=== PATIENT | male | born 2000 | race Caucasian/White ===

== ENCOUNTER 2021-08-20 00:56 | Emergency (ER) | payer OTHER ==
--- NOTE | 2021-08-20 00:56 | ED Physician Documentation ---
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 Patient has been distraught over recent of his mother as well as of a friend by suicide. Tonight he drank a half-bottle of OTC cough syrup with intent of self-harm. He tells me he feels actively suicidal and has been heavily contemplating suicide recently. He is requesting inpatient treatment. he deneis h/o depression, deneis h/o previous suicide attempts. Review of Systems Cardiac: reports: Reviewed and negative Respiratory: reports: Reviewed and negative GI: reports: Reviewed and negative Neurologic: reports: Reviewed and negative Psychiatric: reports: Depressed, Suicidal. denies: Hallucinations, Delusions PD PAST MEDICAL HISTORY - Past Medical History Past Medical History: No - Present Medications Home Medications: Ambulatory Orders Medication Instructions Recorded Confirmed No Known Home Medications 08/20/21 08/20/21 - Allergies Allergies/Adverse Reactions: Allergies Allergy/AdvReac Type Severity Reaction Status Date / Time No Known Drug Allergies Allergy Verified 08/20/21 01:00 PD ED PE NORMAL - Vitals Vital signs reviewed: Yes - General General: Alert and oriented X 3, No acute distress, Well developed/nourished - HEENT HEENT: PERRL, EOMI, Moist mucous membranes - Neck Neck: Supple, no meningeal sign - Cardiac Cardiac: RRR, No murmur - Respiratory Respiratory: No respiratory distress, Clear bilaterally - Abdomen Abdomen: Soft, Non tender - Derm Derm: Normal color, Warm and dry - Neuro Neuro: Alert and oriented X 3 Eye Opening: Spontaneous Motor: Obeys Commands Verbal: Oriented GCS Score: 15 - Psych Psych: Normal mood, Normal affect Results - Vitals Vitals: Vital Signs - 24 hr 08/20/21 08/20/21 08/20/21 01:00 01:33 03:53 Temperature 37 C Heart Rate 103 H 86 77 Respiratory 15 15 16 Rate Blood Pressure 162/104 H 129/85 H 122/70 O2 Saturation 95 97 96 08/20/21 05:31 Temperature Heart Rate 69 Respiratory 16 Rate Blood Pressure 120/67 O2 Saturation 95 Oxygen O2 Source Room air - Labs Labs: Laboratory Tests 08/20/21 08/20/21 08/20/21 01:17 01:21 01:21 WBC 6.6 RBC 5.47 Hgb 16.1 Hct 47.4 MCV 86.7 MCH 29.4 MCHC 34.0 RDW 12.2 Plt Count 173 MPV 10.0 Neut # (Auto) 3.9 Lymph # (Auto) 2.0 [place] # (Auto) 0.5 Eos # (Auto) 0.1 Baso # (Auto) 0.0 Absolute Nucleated RBC 0.00 Nucleated RBC % 0.0 Sodium 138 Potassium 3.5 Chloride 101 Carbon Dioxide 27 Anion Gap 10.0 BUN 14 Creatinine 1.1 Estimated GFR (MDRD) 86 L Glucose 115 H Calcium 9.1 Total Bilirubin 1.0 AST 20 ALT 18 Alkaline Phosphatase 48 Total Protein 7.8 Albumin 4.5 Globulin 3.3 Albumin/Globulin Ratio 1.4 Lipase 32 TSH Urine Color Urine Clarity Urine pH Ur Specific [place] Urine Protein Urine Glucose (UA) Urine Ketones Urine Occult Blood Urine Nitrite Urine Bilirubin Urine Urobilinogen Ur Leukocyte Esterase Ur Microscopic Review Urine Culture Comments Nasal Adenovirus (PCR) NOT DETECTED Nasal B. parapertussis DNA (PCR) NOT DETECTED Nasal Coronavir 229E PCR NOT DETECTED Nasal Coronavir HKU1 PCR NOT DETECTED Nasal Coronavir NL63 PCR NOT DETECTED Nasal Coronavir OC43 PCR NOT DETECTED Nasal Enterovir/Rhinovir PCR NOT DETECTED Nasal Influenza B PCR NOT DETECTED Nasal Influenza A PCR NOT DETECTED Nasal Parainfluen 1 PCR NOT DETECTED Nasal Parainfluen 2 PCR NOT DETECTED Nasal Parainfluen 3 PCR NOT DETECTED Nasal Parainfluen 4 PCR NOT DETECTED Nasal RSV (PCR) NOT DETECTED Nasal B.pertussis DNA PCR NOT DETECTED Nasal C.pneumoniae (PCR) NOT DETECTED [place] Human Metapneumo PCR NOT DETECTED Nasal M.pneumoniae (PCR) NOT DETECTED Nasal SARS-CoV-2 (PCR) NOT DETECTED Salicylates < 6.0 Urine Opiates Screen Ur Oxycodone Screen Urine Methadone Screen Ur Propoxyphene Screen Acetaminophen 21 Ur Barbiturates Screen Ur Tricyclics Screen Ur Phencyclidine Scrn Ur Amphetamine Screen U Methamphetamines Scrn U Benzodiazepines Scrn Urine Cocaine Screen U Cannabinoids Screen Ethyl Alcohol < 5.0 08/20/21 08/20/2108/20/22 01:21 01:25 03:57 WBC RBC Hgb Hct MCV MCH MCHC RDW Plt Count MPV Neut # (Auto) Lymph # (Auto) [place] # (Auto) Eos # (Auto) Baso # (Auto) Absolute Nucleated RBC Nucleated RBC % Sodium Potassium Chloride Carbon Dioxide Anion Gap BUN Creatinine Estimated GFR (MDRD) Glucose Calcium Total Bilirubin AST ALT Alkaline Phosphatase Total Protein Albumin Globulin Albumin/Globulin Ratio Lipase TSH 3.45 Urine Color YELLOW Urine Clarity CLEAR Urine pH 6.0 Ur Specific [place] 1.025 Urine Protein NEGATIVE Urine Glucose (UA) NEGATIVE Urine Ketones NEGATIVE Urine Occult Blood NEGATIVE Urine Nitrite NEGATIVE Urine Bilirubin NEGATIVE Urine Urobilinogen 0.2 (NORMAL) Ur Leukocyte Esterase NEGATIVE Ur Microscopic Review NOT INDICATED Urine Culture Comments NOT INDICATED Nasal Adenovirus (PCR) Nasal B. parapertussis DNA (PCR) Nasal Coronavir 229E PCR Nasal Coronavir HKU1 PCR Nasal Coronavir NL63 PCR Nasal Coronavir OC43 PCR Nasal Enterovir/Rhinovir PCR Nasal Influenza B PCR Nasal Influenza A PCR Nasal Parainfluen 1 PCR Nasal Parainfluen 2 PCR Nasal Parainfluen 3 PCR Nasal Parainfluen 4 PCR Nasal RSV (PCR) Nasal B.pertussis DNA PCR Nasal C.pneumoniae (PCR) [place] Human Metapneumo PCR Nasal M.pneumoniae (PCR) Nasal SARS-CoV-2 (PCR) Salicylates Urine Opiates Screen NEGATIVE Ur Oxycodone Screen NEGATIVE Urine Methadone Screen NEGATIVE Ur Propoxyphene Screen NEGATIVE Acetaminophen 12 Ur Barbiturates Screen NEGATIVE Ur Tricyclics Screen NEGATIVE Ur Phencyclidine Scrn NEGATIVE Ur Amphetamine Screen NEGATIVE U Methamphetamines Scrn NEGATIVE U Benzodiazepines Scrn NEGATIVE Urine Cocaine Screen NEGATIVE U Cannabinoids Screen NEGATIVE Ethyl Alcohol PD MEDICAL DECISION MAKING - ED course Complexity details: reviewed results, re-evaluated patient, considered differential, d/w patient ED course: patient intentionally overdosed on [id number] cough medication tonight and endorses active suicidal thoughts. no concerning findings on testing , including acetaminophen level (performed shortly after arrival, with repeat level drawn at what would be four hours from when he drank the cough syrup; the initial level was 21, which decreased to 12 on the second draw). He is medically cleared and requests inpatient treatment. He is active duty [facility]; [facility] contacted but they do not have beds available. NAKUL will be consulted in the AM to assist in finding appropriate placement. Care of patient turned over to Dr. Pace at end of my shift pending SW evaluation and disposition Departure - Departure Disposition: 65 Psych Hosp/Unit DC/Xfer Clinical Impression: Suicidal ideation Depression Qualifiers: Depression Type: major depressive disorder Major depression recurrence: unspecified whether recurrent Active/Remission status: currently active Major depression episode severity: moderate Qualified Code(s): F32.1 - Major depressive disorder, single episode, moderate Discharge Date/Time: 08/20/21 15:08
[2021-08-20 01:25] LABS: BASOPHILS % (AUTO) 0.5 %; EOSINOPHILS # (AUTO) 0.1 10^3/uL (0.0-0.7); HCT - HEMATOCRIT 47.4 % (42.0-52.0); HGB - HEMOGLOBIN 16.1 g/dL (14.0-18.0); LYMPHOCYTES % (AUTO) 29.7 %; MEAN CORPUSCULAR HEMOGLOBIN 29.4 pg (27.0-31.0); MEAN CORPUSCULAR VOLUME 86.7 fL (80.0-94.0); MONOCYTES # (AUTO) 0.5 10^3/uL (0.0-1.0); MONOCYTES % (AUTO) 8.2 %; NEUTROPHILS # (AUTO) 3.9 10^3/uL (1.5-6.6); NEUTROPHILS % (AUTO) 59.3 %; PLT - PLATELET COUNT 173 10^3/uL (130-450); RED BLOOD COUNT 5.47 10^6/uL (4.70-6.10); RED CELL DISTRIBUTION WIDTH 12.2 % (12.0-15.0); WHITE BLOOD COUNT 6.6 x10^3/uL (4.8-10.8)
[2021-08-20 01:30] LABS: MUDS CUTOFF CONCENTRATIONS CUTOFF CONC BELOW:
[2021-08-20 01:38] LABS: BILIRUBIN,URINE NEGATIVE (NEGATIVE); GLUCOSE, URINE (UA) NEGATIVE (NEGATIVE); KETONES,URINE (UA) NEGATIVE (NEGATIVE); LEUKOCYTE ESTERASE, URINE NEGATIVE (NEGATIVE); NITRITE,URINE NEGATIVE (NEGATIVE); OCCULT BLOOD,URINE NEGATIVE (NEGATIVE); PROTEIN,URINE NEGATIVE (NEGATIVE); UROBILINOGEN,URINE 0.2 (NORMAL) E.U./dL (NORMAL)
[2021-08-20 01:39] LABS: CLARITY,URINE CLEAR (CLEAR)
[2021-08-20 01:44] LABS: ACETAMINOPHEN 21 ug/mL (10-30); ALBUMIN 4.5 g/dL (3.2-5.5); ALBUMIN/GLOBULIN RATIO 1.4 (1.0-2.2); ALKALINE PHOSPHATASE 48 IU/L (42-121); ALT ALANINE AMINOTRANSFERASE 18 IU/L (10-60); AST ASPARTATE AMINOTRANSFERASE 20 IU/L (10-42); BUN - BLOOD UREA NITROGEN 14 mg/dL (6-20); CALCIUM 9.1 mg/dL (8.5-10.3); CARBON DIOXIDE - CO2 27 mmol/L (21-32); CHLORIDE 101 mmol/L (101-111); CREATININE 1.1 mg/dL (0.6-1.2); ETOH - ETHANOL < 5.0 mg/dL; GFR - MDRD 86 (>89); GLUCOSE 115 mg/dL (70-100); LIPASE 32 U/L (22-51); POTASSIUM 3.5 mmol/L (3.5-5.0); SALICYLATE < 6.0 mg/dL; SODIUM 138 mmol/L (135-145); TOTAL PROTEIN 7.8 g/dL (6.7-8.2)
[2021-08-20 01:47] LABS: AMPHETAMINE SCREEN,URINE NEGATIVE (NEGATIVE); BARBITURATE SCREEN,UR NEGATIVE (NEGATIVE); BENZODIAZEPINES SCREEN, URINE NEGATIVE (NEGATIVE); COCAINE SCREEN URINE NEGATIVE (NEGATIVE); METHADONE SCREEN, URINE NEGATIVE (NEGATIVE); METHAMPHETAMINES SCREEN, URINE NEGATIVE (NEGATIVE); OPIATE SCREEN, URINE NEGATIVE (NEGATIVE); OXYCODONE SCREEN, URINE NEGATIVE (NEGATIVE); PROPOXYPHENE SCREEN, URINE NEGATIVE (NEGATIVE); THC CANNABINOID SCREEN, URINE NEGATIVE (NEGATIVE); TRICYCLIC ANTIDEPRESSANT,URINE NEGATIVE (NEGATIVE)
[2021-08-20 02:23] LABS: B. PARAPERTUSSIS- RESP PCR PAN NOT DETECTED; B. PERTUSSIS- RESP PCR PANEL NOT DETECTED; C. PNEUMONIAE- RESP PCR PANEL NOT DETECTED; CORONAVIRUS 229E-RESP PCR NOT DETECTED; CORONAVIRUS HKU1-RESP PCR NOT DETECTED; CORONAVIRUS NL63-RESP PCR NOT DETECTED; CORONAVIRUS OC43-RESP PCR NOT DETECTED; HUMAN METAPNEUMOVIRUS NOT DETECTED; INFLUENZA A- RESP PCR PANEL NOT DETECTED; INFLUENZA B - RESP PCR PANEL NOT DETECTED; M. PNEUMONIAE- RESP PCR PANEL NOT DETECTED; PARAINFLUENZA VIRUS 1 NOT DETECTED; PARAINFLUENZA VIRUS 2 NOT DETECTED; PARAINFLUENZA VIRUS 3 NOT DETECTED; PARAINFLUENZA VIRUS 4 NOT DETECTED; RHINOVIRUS/ENTEROVIRUS NOT DETECTED; RSV- RESP PCR PANEL NOT DETECTED; SARS-CoV-2 -RESP PCR PANEL NOT DETECTED
[2021-08-20 05:31] VITALS: BP 120/67
--- NOTE | 2021-08-20 13:23 | ED Physician Documentation ---
ED Addendum - Addendum Addendum: 08/20/21 13:23 20-year-old male with depression and suicidal ideation is voluntary and he is accepted at [facility]. [facility] was full unable to accept him.
== END 2021-08-20 15:08 ==
LOC: ED 00:56
DX: F32.1 Major depressive disorder, single episode, moderate (principal); T48.4X2A Poisoning by expectorants, intentional self-harm, initial encounter; R45.851 Suicidal ideations; Z20.822 Contact with and (suspected) exposure to COVID-19
CPT/HCPCS: 0202U; 36415; 80053; 80306; 80307; 80320; 80329; 81003; 83690; 84443; 85025; 99283; 99285; 81001; 87086

== ENCOUNTER 2021-09-02 11:50 | Outpatient (CLI) | payer OTHER | END 2021-09-02 11:51 | disposition critical access hospital (66) | LOC: EMS 11:50 | DX: T50.992A Poisoning by other drugs, medicaments and biological substances, intentional self-harm, initial encounter (principal) | CPT/HCPCS: A0425; A0429 ==

== ENCOUNTER 2021-09-02 12:18 | Emergency (ER) | payer OTHER ==
--- NOTE | 2021-09-02 12:28 | ED Physician Documentation ---
PD HPI OVERDOSE - Stated complaint Stated Complaint: OD - History obtained from History obtained from: Patient - History of Present Illness Timing - onset: How many hours ago (1 /2), Today Subtance(s) ingested: Single (hydroxyzine 25 mg tablets, about 12-15 total.) Associated symptoms: Altered mental status (he started to feel drowsy and lightheaded and told his friend what he did, who called EMS.) Contributing factors: Depresssed, Suicidal (He states he does have history of depression and prior suicide ideation. His boyfriend broke up with him today which got him reactively more depressed and he took a overdose of the hydroxyzine in response. He then told his friend who called EMS for help.) Similar symptoms before: Diagnosis (depression and suicidal ideation.) Recently seen: Not recently seen Review of Systems Constitutional: denies: Fever, Chills Nose: denies: Rhinorrhea / runny nose, Congestion Throat: denies: Sore throat Respiratory: denies: Cough GI: reports: Nausea. denies: Abdominal Pain, Vomiting, Diarrhea Skin: denies: Abrasion (s), Laceration (s) Neurologic: reports: Altered mental status (feeling lightheaded since ingestion.) PD PAST MEDICAL HISTORY - Past Medical History Cardiovascular: None Respiratory: None Endocrine/Autoimmune: None Psych: Depression, Anxiety - Past Surgical History Past Surgical History: Yes HEENT: Tonsil/Adenoidectomy - Present Medications Home Medications: Ambulatory Orders Medication Instructions Recorded Confirmed Atomoxetine HCl [Strattera] 40 mg PO DAILY 09/02/21 09/02/21 OLANZapine ODT [Zyprexa Odt] 5 mg TL Q6HR PRN 09/02/21 09/02/21 hydrOXYzine pamoate [Hydroxyzine 75 mg PO Q4HR PRN 09/02/21 09/02/21 Pamoate] traZODone [Desyrel] 50 mg PO HS PRN 09/02/21 09/02/21 - Allergies Allergies/Adverse Reactions: Allergies Allergy/AdvReac Type Severity Reaction Status Date / Time clonidine Allergy Anaphylaxis Verified 09/02/21 12:26 - Social History Does the pt smoke?: No Smoking Status: Never smoker Does the pt drink ETOH?: No Does the pt have substance abuse?: No - Immunizations Immunizations are current?: Yes PD ED PE NORMAL - Vitals Vital signs reviewed: Yes - General General: Alert and oriented X 3, Well developed/nourished - HEENT HEENT: PERRL, EOMI (no nystagmus), Moist mucous membranes, Pharynx benign - Neck Neck: Supple, no meningeal sign, No adenopathy - Cardiac Cardiac: No murmur. No: RRR (regular but tachycardic) - Respiratory Respiratory: Clear bilaterally - Abdomen Abdomen: Soft, Non tender - Derm Derm: Normal color, Warm and dry, No rash - Extremities Extremities: Normal ROM s pain - Neuro Neuro: Alert and oriented X 3, No motor deficit, Normal speech - Psych Psych: No: Normal affect (sad and moderate anxious) Results - Vitals Vitals: Vital Signs - 24 hr 09/02/21 09/02/21 09/02/21 12:23 12:50 13:29 Temperature 37.0 C Heart Rate 130 H 100 116 H Respiratory 16 15 20 Rate Blood Pressure 160/98 H 150/93 H 142/95 H O2 Saturation 100 98 98 09/02/21 09/02/21 09/02/21 13:30 14:35 15:00 Temperature Heart Rate 103 H 91 108 H Respiratory 14 17 19 Rate Blood Pressure 137/89 H 113/83 H 130/97 H O2 Saturation 98 97 98 09/02/21 09/02/21 09/02/21 15:30 16:00 16:39 Temperature 36.8 C Heart Rate 106 H 99 99 Respiratory 18 17 17 Rate Blood Pressure 137/89 H 129/87 H 125/76 O2 Saturation 99 98 97 09/02/21 09/02/21 09/02/21 17:31 18:07 18:35 Temperature 37.4 C Heart Rate 104 H 97 88 Respiratory 24 17 22 Rate Blood Pressure 143/92 H 139/88 H 127/80 O2 Saturation 96 97 97 Oxygen O2 Source Room air - EKG (time done) 12:35 Rate: Rate (enter#) (113) Rhythm: Sinus tachycardia [place]: Normal Intervals: Normal DC QRS: Normal Ischemia: Normal ST segments. No: ST elevation c/w ischemia, ST depression - Labs Labs: Laboratory Tests 09/02/21 09/02/21 09/02/21 12:43 12:43 12:43 WBC 6.5 RBC 5.76 Hgb 16.8 Hct 49.9 MCV 86.6 MCH 29.2 MCHC 33.7 RDW 12.3 Plt Count 197 MPV 10.1 Neut # (Auto) 4.1 Lymph # (Auto) 1.6 [place] # (Auto) 0.6 Eos # (Auto) 0.2 Baso # (Auto) 0.0 Absolute Nucleated RBC 0.00 Nucleated RBC % 0.0 Sodium 139 Potassium 3.8 Chloride 103 Carbon Dioxide 26 Anion Gap 10.0 BUN 10 Creatinine 1.2 Estimated GFR (MDRD) 78 L Glucose 105 H Calcium 9.4 Total Bilirubin 2.4 H AST 19 ALT 16 Alkaline Phosphatase 50 Total Protein 7.8 Albumin 4.6 Globulin 3.2 Albumin/Globulin Ratio 1.4 Lipase 25 TSH 2.56 Urine Color Urine Clarity Urine pH Ur Specific [place] Urine Protein Urine Glucose (UA) Urine Ketones Urine Occult Blood Urine Nitrite Urine Bilirubin Urine Urobilinogen Ur Leukocyte Esterase Ur Microscopic Review Urine Culture Comments Salicylates < 6.0 Urine Opiates Screen Ur Oxycodone Screen Urine Methadone Screen Ur Propoxyphene Screen Acetaminophen < 10 L Ur Barbiturates Screen Ur Tricyclics Screen Ur Phencyclidine Scrn Ur Amphetamine Screen U Methamphetamines Scrn U Benzodiazepines Scrn Urine Cocaine Screen U Cannabinoids Screen Ethyl Alcohol < 5.0 09/02/21 13:00 WBC RBC Hgb Hct MCV MCH MCHC RDW Plt Count MPV Neut # (Auto) Lymph # (Auto) [place] # (Auto) Eos # (Auto) Baso # (Auto) Absolute Nucleated RBC Nucleated RBC % Sodium Potassium Chloride Carbon Dioxide Anion Gap BUN Creatinine Estimated GFR (MDRD) Glucose Calcium Total Bilirubin AST ALT Alkaline Phosphatase Total Protein Albumin Globulin Albumin/Globulin Ratio Lipase TSH Urine Color YELLOW Urine Clarity CLEAR Urine pH 6.0 Ur Specific [place] 1.025 Urine Protein NEGATIVE Urine Glucose (UA) NEGATIVE Urine Ketones NEGATIVE Urine Occult Blood NEGATIVE Urine Nitrite NEGATIVE Urine Bilirubin NEGATIVE Urine Urobilinogen 0.2 (NORMAL) Ur Leukocyte Esterase NEGATIVE Ur Microscopic Review NOT INDICATED Urine Culture Comments NOT INDICATED Salicylates Urine Opiates Screen NEGATIVE Ur Oxycodone Screen NEGATIVE Urine Methadone Screen NEGATIVE Ur Propoxyphene Screen NEGATIVE Acetaminophen Ur Barbiturates Screen NEGATIVE Ur Tricyclics Screen NEGATIVE Ur Phencyclidine Scrn NEGATIVE Ur Amphetamine Screen NEGATIVE U Methamphetamines Scrn NEGATIVE U Benzodiazepines Scrn NEGATIVE Urine Cocaine Screen NEGATIVE U Cannabinoids Screen NEGATIVE Ethyl Alcohol PD MEDICAL DECISION MAKING - ED course Complexity details: reviewed results, re-evaluated patient (The patient was initially tachycardic in the little bit lightheaded. This improved over 1 to 2 hours and he subsequently is feeling normal. Heart rate is good. Blood pressure is also good. He has not developed any significant consequence from the overdose. He is able to be assessed psychiatric.), considered differential, d/w patient, d/w procurement consultant (Telepsychiatry provider talked with the patient and was concerned about his still ongoing stress about the current situation and recommends voluntary inpatient. The patient is agreeable.) Departure - Departure Disposition: 65 Psych Hosp/Unit DC/Xfer Clinical Impression: Suicidal risk, Reactive depression (situational) Intentional overdose Qualifiers: Encounter type: initial encounter Qualified Code(s): T50.902A - Poisoning by unspecified drugs, medicaments and biological substances, intentional self-harm, initial encounter Depression Qualifiers: Depression Type: unspecified Qualified Code(s): F32.A - Depression, unspecified Condition: Stable Record reviewed to determine appropriate education?: Yes
[2021-09-02] MEDS ORDERED: SODIUM CHLORIDE 0.9% 1,000 ML IV STA (12:30)
[2021-09-02] MEDS ORDERED: KETOROLAC 15 MG/ML VIAL IVP STA (12:30)
[2021-09-02] MEDS ORDERED: FAMOTIDINE 20 MG/2 ML VIAL IVP STA (12:30)
[2021-09-02] MEDS ORDERED: CHARCOAL ACTIVATED 25 GM/120 ML BOTTLE PO STA (12:30)
[2021-09-02 12:49] LABS: BASOPHILS % (AUTO) 0.3 %; EOSINOPHILS # (AUTO) 0.2 10^3/uL (0.0-0.7); EOSINOPHILS % (AUTO) 2.3 %; HCT - HEMATOCRIT 49.9 % (42.0-52.0); HGB - HEMOGLOBIN 16.8 g/dL (14.0-18.0); LYMPHOCYTES # (AUTO) 1.6 10^3/uL (1.5-3.5); LYMPHOCYTES % (AUTO) 25.1 %; MEAN CORPUSCULAR HEMOGLOBIN 29.2 pg (27.0-31.0); MEAN CORPUSCULAR HGB CONC 33.7 g/dL (32.0-36.0); MEAN CORPUSCULAR VOLUME 86.6 fL (80.0-94.0); MEAN PLATELET VOLUME 10.1 fL (7.4-11.4); MONOCYTES # (AUTO) 0.6 10^3/uL (0.0-1.0); MONOCYTES % (AUTO) 9.1 %; NEUTROPHILS # (AUTO) 4.1 10^3/uL (1.5-6.6); NEUTROPHILS % (AUTO) 62.9 %; PLT - PLATELET COUNT 197 10^3/uL (130-450); RED BLOOD COUNT 5.76 10^6/uL (4.70-6.10); RED CELL DISTRIBUTION WIDTH 12.3 % (12.0-15.0); WHITE BLOOD COUNT 6.5 x10^3/uL (4.8-10.8)
[2021-09-02 13:13] LABS: ACETAMINOPHEN < 10 ug/mL (10-30); ALBUMIN 4.6 g/dL (3.2-5.5); ALBUMIN/GLOBULIN RATIO 1.4 (1.0-2.2); ALKALINE PHOSPHATASE 50 IU/L (42-121); ALT ALANINE AMINOTRANSFERASE 16 IU/L (10-60); AST ASPARTATE AMINOTRANSFERASE 19 IU/L (10-42); BILIRUBIN,TOTAL 2.4 mg/dL (0.2-1.0); BUN - BLOOD UREA NITROGEN 10 mg/dL (6-20); CALCIUM 9.4 mg/dL (8.5-10.3); CARBON DIOXIDE - CO2 26 mmol/L (21-32); CHLORIDE 103 mmol/L (101-111); CREATININE 1.2 mg/dL (0.6-1.2); ETOH - ETHANOL < 5.0 mg/dL; GFR - MDRD 78 (>89); GLUCOSE 105 mg/dL (70-100); LIPASE 25 U/L (22-51); POTASSIUM 3.8 mmol/L (3.5-5.0); SALICYLATE < 6.0 mg/dL; SODIUM 139 mmol/L (135-145); TOTAL PROTEIN 7.8 g/dL (6.7-8.2)
[2021-09-02 13:22] LABS: MUDS CUTOFF CONCENTRATIONS CUTOFF CONC BELOW:
[2021-09-02 13:27] LABS: BILIRUBIN,URINE NEGATIVE (NEGATIVE); GLUCOSE, URINE (UA) NEGATIVE (NEGATIVE); KETONES,URINE (UA) NEGATIVE (NEGATIVE); LEUKOCYTE ESTERASE, URINE NEGATIVE (NEGATIVE); NITRITE,URINE NEGATIVE (NEGATIVE); OCCULT BLOOD,URINE NEGATIVE (NEGATIVE); PROTEIN,URINE NEGATIVE (NEGATIVE); UROBILINOGEN,URINE 0.2 (NORMAL) E.U./dL (NORMAL)
[2021-09-02 13:32] LABS: CLARITY,URINE CLEAR (CLEAR)
[2021-09-02 13:36] LABS: AMPHETAMINE SCREEN,URINE NEGATIVE (NEGATIVE); BARBITURATE SCREEN,UR NEGATIVE (NEGATIVE); BENZODIAZEPINES SCREEN, URINE NEGATIVE (NEGATIVE); COCAINE SCREEN URINE NEGATIVE (NEGATIVE); METHADONE SCREEN, URINE NEGATIVE (NEGATIVE); METHAMPHETAMINES SCREEN, URINE NEGATIVE (NEGATIVE); OPIATE SCREEN, URINE NEGATIVE (NEGATIVE); OXYCODONE SCREEN, URINE NEGATIVE (NEGATIVE); PROPOXYPHENE SCREEN, URINE NEGATIVE (NEGATIVE); THC CANNABINOID SCREEN, URINE NEGATIVE (NEGATIVE); TRICYCLIC ANTIDEPRESSANT,URINE NEGATIVE (NEGATIVE)
--- NOTE | 2021-09-02 18:03 | TELEPSYCH PHYS NOTE ---
Telepsych Consultation Note Consult: Name: Diogenes Cloud :01 Date: 09/02/21 Time:8:25pm Location of patient:[place] Location of doctor:[facility] Length of consult:40min This evaluation was conducted via telepsychiatry with the assistance of onsite staff Reason for consult: suicidal Requested by: JASON COREY M.D. History of Present Illness: 20y/o swm comes in following suicide attempt by OD. PT says he has attempted suicide before by overdose 3weeks ago. HE denied thoughts of harm to others or h/o violence. He says his sleep and appetite are fine. He denied h/o trauma or abuse. He denied s/o tyshawn or psychosis. He denied use of illicit drugs or alcohol. He was hospitalized for depression a few weeks ago and is supposed to start therapy but has not started yet. He gave consent to speak with his grandmother Lauren. Collateral contacted Lauren Mccoy/grandmother [phone] no answer Sleep issues:denied Psychiatric History/Treatment History: Past diagnoses:MDD, anxiety Hospitalizations: once early August 2021 Current Treatment: medication and therapy pending Suicide Assessment: PSS-3: 1) Over the past 2 weeks have you felt down, depressed or hopeless? yes 2) Over the past 2 weeks have you had thoughts of killing yourself? yes 3) Have you ever in your life attempted to kill yourself? yes If yes, then when? Within the past 24h? (Y PSS-3 Secondary Screen If #2 is yes or #3 is yes within the past 6 months, then complete secondary screen: 1) Positive on PSS-3 questions 2 & 3 active SI with a past attempt? yes 2) Have you been thinking about how you might kill yourself? yes 3) Have you had some intention of acting on your thoughts? yes 4) Lifetime psychiatric hospitalization? yes 5) Has drinking or substance abuse ever been a problem for you? no 6) Current irritability, agitation, or aggression? no PSS-3 Secondary Screen Scoring: (Mild/Moderate/Severe) Severe (5-6) Current Attempt with Plan AND intent [employer] ([employer])-based Safety Assessment: Risk Factors Stressors: recent break up Attempts/Self-injury: overdose twice Impulsivity: yes Drug/Alcohol History:denied Trauma history: denied Access to firearms: denied HI/Violence/Property destruction: denied Legal: denied Family Psych History: Mom abused drugs and alcohol, dad was depressed and abused alcohol Family History of suicide: best friend shot himself 2year ago Protective Factors Internal: none External: Social supports/ Therapeutic relationships: grandmother Relationship history:Pt was going to propose to his boyfriend today but boyfriend broke up with him Living situation: alone in [facility] Employment: [employer] Education: high school Responsibility to family/children/work: no Future orientation: no Medical History: none Medications & Freq: Trazodone 50mg po qhs prn insomnia Zyprexa 5mg po tid prn Strattera 40mg qd Hydroxyzine 75mg po prn anxiety Allergies: clonidine Mental Status Exam: Appearance and attire: neatly groomed fair eye contact Attitude and behavior: anxious but cooperative Psychomotor agitation/abnormal movements:none Speech: nl r/r/vol Affect and mood: not the best with an anxious affect Association and thought processes: linear Thought content: suicidal Perception: denied Sensorium, memory, and orientation: grossly oriented Intellectual functioning: average Insight and judgment: poor Impression/Risk Assessment: Current Suicide Risk yes Current Violence Risk no Ability to care for self: yes Summary: 20y/o male with h/o depression returns for 2nd time in a month with a 2 nd suicide attempt by OD. He had planned to propose to his boyfriend today but the boyfriend broke up with him. Pt endorsed feeling sad, hopeless and wants to end his life. He denied feeling he had a support system, stating the boyfriend was his support. He did consent to speak with his grandmother for collateral. Pt has a family hx of depression and substance issues but denied substance issues himself. UDS/BAL neg. His mother of complications of alcohol. His best friend shot and killed himself a couple years ago. I was unable to reach collateral. Given that this is patients 2nd suicide attempt, he has poor impulse control and a no support system along with a family hx of affective d/o, recommend admit for safety and stabilization. Diagnosis: CPT code:64915 Treatment Plan Admit to inpatient psych for mood stabilization and safety Level of Care: voluntary inpatient psych. Pt has attempted suicide twice in a month and has no support system. He would meet criteria for involuntary should he opt to sign out. Psychiatric Clearance: no Observation level line of sight Pharmacological: Strattera 40mg po qd Zyprexa 5mg po/im q 4h prn agitation/psychosis Hydroxyzine 50mg po tid prn anxiety Patient psychotic? no Therapy: supportive Follow up needed while in hospital?: Please consult psych as needed for med management while awaiting a bed. Discussed plan with onsite executive team leader, who? Dr Corey Signature: Printed Name: Bouchra Shine MD List names and roles of persons who participated in consult: Bouchra Shine MD and Diogenes/patient
[2021-09-02] MEDS ORDERED: LORazepam 0.5 MG TABLET PO STA (18:45)
[2021-09-02] MEDS ORDERED: NICOTINE 14 MG PATCH TOP STA (18:45)
[2021-09-02 19:57] LABS: B. PARAPERTUSSIS- RESP PCR PAN NOT DETECTED; B. PERTUSSIS- RESP PCR PANEL NOT DETECTED; C. PNEUMONIAE- RESP PCR PANEL NOT DETECTED; CORONAVIRUS 229E-RESP PCR NOT DETECTED; CORONAVIRUS HKU1-RESP PCR NOT DETECTED; CORONAVIRUS NL63-RESP PCR NOT DETECTED; CORONAVIRUS OC43-RESP PCR NOT DETECTED; HUMAN METAPNEUMOVIRUS NOT DETECTED; INFLUENZA A- RESP PCR PANEL NOT DETECTED; INFLUENZA B - RESP PCR PANEL NOT DETECTED; M. PNEUMONIAE- RESP PCR PANEL NOT DETECTED; PARAINFLUENZA VIRUS 1 NOT DETECTED; PARAINFLUENZA VIRUS 2 NOT DETECTED; PARAINFLUENZA VIRUS 3 NOT DETECTED; PARAINFLUENZA VIRUS 4 NOT DETECTED; RHINOVIRUS/ENTEROVIRUS NOT DETECTED; RSV- RESP PCR PANEL NOT DETECTED; SARS-CoV-2 -RESP PCR PANEL NOT DETECTED
[2021-09-03 17:33] VITALS: BP 122/78
== END 2021-09-03 18:48 ==
LOC: EDUNIT# → ED 12:18
DX: F33.9 Major depressive disorder, recurrent, unspecified (principal); R45.851 Suicidal ideations; Z20.822 Contact with and (suspected) exposure to COVID-19
CPT/HCPCS: 0202U; 36415; 80053; 80306; 80307; 80320; 80329; 81003; 83690; 84443; 85025; 93005; 96374; 96375; 99283; 99285; A9270; G0425; Q3014; 81001; 87086

== ENCOUNTER 2021-09-20 18:43 | Outpatient (CLI) | payer OTHER | END 2021-09-20 23:59 | disposition critical access hospital (66) | LOC: EMS 18:43 | DX: R07.9 Chest pain, unspecified (principal); F41.9 Anxiety disorder, unspecified | CPT/HCPCS: A0425; A0427 ==

== ENCOUNTER 2021-09-20 19:08 | Emergency (ER) | payer OTHER ==
--- NOTE | 2021-09-20 19:55 | ED Physician Documentation ---
History of Present Illness - Stated complaint Stated Complaint: CHEST PX - Chief complaint Chief Complaint: Cardiac - History obtained from History obtained from: Patient, EMS - History of Present Illness Timing: Today Pain level max: 0 Pain level now: 0 - Additonal information Additional information: 20-year-old male brought in by EMS. He states that he drank 2 large energy drinks and coffee about 1 hour ago. He states since that time he has felt his heart racing, he has felt nauseated and sweaty and anxious. Nothing makes it better or worse. He states he had some chest pain as well. The pain was dull, aching, nonradiating. History of anxiety. No history of cardiac disease. No history of young cardiac disease in the family. Review of Systems Constitutional: denies: Fever, Chills GI: denies: Vomiting, Diarrhea Skin: denies: Rash Musculoskeletal: denies: Neck pain, Back pain Neurologic: denies: Headache PD PAST MEDICAL HISTORY - Past Medical History Cardiovascular: None Respiratory: None Neuro: None Endocrine/Autoimmune: None GI: None : None HEENT: None Psych: Depression, Anxiety Musculoskeletal: None Derm: None - Past Surgical History Past Surgical History: Yes HEENT: Tonsil/Adenoidectomy - Present Medications Home Medications: Ambulatory Orders Medication Instructions Recorded Confirmed Atomoxetine HCl [Strattera] 40 mg PO DAILY 09/02/21 09/02/21 OLANZapine ODT [Zyprexa Odt] 5 mg TL Q6HR PRN 09/02/21 09/02/21 hydrOXYzine pamoate [Hydroxyzine 75 mg PO Q4HR PRN 09/02/21 09/02/21 Pamoate] traZODone [Desyrel] 50 mg PO HS PRN 09/02/21 09/02/21 busPIRone [Buspar] 15 mg PO BID 09/20/21 09/20/21 - Allergies Allergies/Adverse Reactions: Allergies Allergy/AdvReac Type Severity Reaction Status Date / Time clonidine Allergy Anaphylaxis Verified 09/02/21 12:26 - Social History Does the pt smoke?: No Smoking Status: Never smoker Does the pt drink ETOH?: No Does the pt have substance abuse?: No - Immunizations Immunizations are current?: Yes PD ED PE NORMAL - Vitals Vital signs reviewed: Yes - General General: Alert and oriented X 3, No acute distress - HEENT HEENT: Moist mucous membranes - Neck Neck: Supple, no meningeal sign - Cardiac Cardiac: No murmur, Other (Tachycardic, regular) - Respiratory Respiratory: No respiratory distress, Clear bilaterally - Abdomen Abdomen: Soft, Non tender, Non distended - Derm Derm: Warm and dry - Extremities Extremities: No edema - Neuro Neuro: Alert and oriented X 3 Results - Vitals Vitals: Vital Signs - 24 hr 09/20/21 09/20/21 09/20/21 19:16 19:21 20:58 Temperature 37.1 C Heart Rate 130 H 140 H 124 H Respiratory 26 H 24 Rate Blood Pressure 148/81 H 125/89 H O2 Saturation 100 94 09/20/21 09/20/21 21:27 22:04 Temperature 37 C Heart Rate 113 H 90 Respiratory 20 18 Rate Blood Pressure 114/85 H 136/84 H O2 Saturation 95 97 Oxygen O2 Source Room air - EKG (time done) 1912 Rate: Rate (enter#) (121) Rhythm: Sinus tachycardia [place]: Normal Intervals: Normal [place] QRS: Normal Ischemia: Normal ST segments PD MEDICAL DECISION MAKING - ED course Complexity details: reviewed results, re-evaluated patient, considered differential, d/w patient ED course: 20-year-old male with what appears to be an accidental caffeine overdose. Given Ativan and symptoms resolved. Feels much better. No acute findings on EKG. No evidence of ischemia. No indication for laboratory testing. Patient was monitored for several hours in the emergency department. Patient counseled regarding signs and symptoms for which I believe and urgent re-evaluation would be necessary. Patient with good understanding of and agreement to plan and is comfortable going home at this time This document was made in part using voice recognition software. While efforts are made to proofread this document, sound alike and grammatical errors may occur. Departure - Departure Disposition: 01 Home, Self Care Clinical Impression: Accidental caffeine overdose Qualifiers: Encounter type: initial encounter Qualified Code(s): T43.611A - Poisoning by caffeine, accidental (unintentional), initial encounter Condition: Good Instructions: ED Overdose Accidental Follow-Up: your,doctor in 1 week [Other] Comments: Please avoid any further energy drinks, caffeine or other stimulants. Follow-up with your doctor for further care. Return if you worsen Discharge Date/Time: 09/20/21 22:04
[2021-09-20] MEDS ORDERED: LORazepam 2 MG/ML VIAL IVP STA (20:47)
[2021-09-20 22:06] VITALS: BP 136/84
== END 2021-09-20 22:04 | disposition home or self-care (01) ==
LOC: EDUNIT# → ED 19:08
DX: T43.611A Poisoning by caffeine, accidental (unintentional), initial encounter (principal)
CPT/HCPCS: 93005; 96374; 99282; 99284; J2060

== ENCOUNTER 2021-11-21 10:37 | Emergency (ER) | payer OTHER ==
[2021-11-21] MEDS ORDERED: SODIUM CHLORIDE 0.9% 1,000 ML IV STA (10:41)
[2021-11-21] MEDS ORDERED: HYDROmorphone 1 MG/ML CARPUJECT IVP STA ×2 (10:41→11:35)
--- NOTE | 2021-11-21 10:42 | ED Physician Documentation ---
PD HPI ABD PAIN - Stated complaint Stated Complaint: ABD PX - History obtained from History obtained from: Patient, EMS - Additional information Additional information: 21-year-old gentleman with no history of abdominal surgeries presents with 3 days of increasing right abdominal pain which has been migrating lower in the abdomen. It is associated with nausea and vomiting and the nausea is mild at this point. He feels the pain gets better after vomiting. No changes in bowel movements or urinary complaints. Review of Systems Ten Systems: 10 systems reviewed and negative Constitutional: reports: Reviewed and negative Eyes: reports: Reviewed and negative Nose: reports: Reviewed and negative Throat: reports: Reviewed and negative Respiratory: reports: Reviewed and negative PD PAST MEDICAL HISTORY - Past Medical History Cardiovascular: None Respiratory: None Neuro: None Endocrine/Autoimmune: None GI: None : None HEENT: None Psych: Depression, Anxiety Musculoskeletal: None Derm: None - Past Surgical History Past Surgical History: Yes HEENT: Tonsil/Adenoidectomy - Present Medications Home Medications: Ambulatory Orders Medication Instructions Recorded Confirmed busPIRone [Buspar] 15 mg PO BID 09/20/21 11/21/21 Escitalopram [Lexapro] 10 mg PO DAILY 11/21/21 11/21/21 HYDROcod/ACETAM 5/325 [[place] 5/325] 1 - 2 tab PO Q6H PRN #15 tablet 11/21/21 Ibuprofen [Motrin] 800 mg PO Q8H PRN #30 tablet 11/21/21 - Allergies Allergies/Adverse Reactions: Allergies Allergy/AdvReac Type Severity Reaction Status Date / Time clonidine Allergy Anaphylaxis Verified 11/21/21 10:44 - Social History Does the pt smoke?: No Smoking Status: Never smoker Does the pt drink ETOH?: No Does the pt have substance abuse?: No - Immunizations Immunizations are current?: Yes PD ED PE NORMAL - Vitals Vital signs reviewed: Yes - General General: Alert and oriented X 3, No acute distress - HEENT HEENT: PERRL, EOMI - Neck Neck: Supple, no meningeal sign, No bony TTP - Cardiac Cardiac: RRR, No murmur - Respiratory Respiratory: No respiratory distress, Clear bilaterally - Abdomen Abdomen: Normal bowel sounds, Other (Focally tender in the right lower quadrant with some guarding there. No rebound tenderness. Equivocal Rovsing sign.) - Back Back: No CVA TTP, No spinal TTP - Derm Derm: Normal color, Warm and dry - Extremities Extremities: No edema, No calf tenderness / cord - Neuro Neuro: Alert and oriented X 3, Normal speech Results - Vitals Vitals: Vital Signs - 24 hr 11/21/21 10:42 Temperature 36.5 C Heart Rate 110 H Respiratory 22 Rate Blood Pressure 143/91 H O2 Saturation 100 Oxygen O2 Source Room air - Labs Labs: Laboratory Tests 11/21/21 11/21/21 11/21/21 10:49 10:49 12:10 WBC 8.3 RBC 5.37 Hgb 15.5 Hct 46.5 MCV 86.6 MCH 28.9 MCHC 33.3 RDW 12.4 Plt Count 197 MPV 10.4 Neut # (Auto) 5.6 Lymph # (Auto) 2.0 [place] # (Auto) 0.6 Eos # (Auto) 0.1 Baso # (Auto) 0.0 Absolute Nucleated RBC 0.00 Nucleated RBC % 0.0 Sodium 138 Potassium 3.9 Chloride 101 Carbon Dioxide 28 Anion Gap 9.0 BUN 12 Creatinine 1.2 Estimated GFR (MDRD) 77 L Glucose 111 H Calcium 9.3 Total Bilirubin 1.3 H AST 27 ALT 36 Alkaline Phosphatase 49 Total Protein 7.3 Albumin 4.2 Globulin 3.1 Albumin/Globulin Ratio 1.4 Lipase 29 Urine Color YELLOW Urine Clarity CLEAR Urine pH 7.0 Ur Specific [place] 1.010 Urine Protein NEGATIVE Urine Glucose (UA) NEGATIVE Urine Ketones NEGATIVE Urine Occult Blood TRACE-INTA Urine Nitrite NEGATIVE Urine Bilirubin NEGATIVE Urine Urobilinogen 0.2 (NORMAL) Ur Leukocyte Esterase NEGATIVE Ur Microscopic Review NOT INDICATED Urine Culture Comments NOT INDICATED - Rads (name of study) CT A/P Radiology: EMP read contemporaneously (3-mm distal right ureteral stone with hypoenhancement of the right kidney concerning for pyelonephritis or renal infarct. Nonobstructing bilateral calculi) PD MEDICAL DECISION MAKING - ED course ED course: 21-year-old gentleman with acute right-sided abdominal pain found to have a 3 mm distal ureteral stone on CT imaging along with incidental findings of multiple nephroliths and possible renal infarct versus pyelonephritis. After pain medication here he was pain-free and the diagnosis and CT findings were discussed with him. Departure - Departure Disposition: 01 Home, Self Care Clinical Impression: Renal colic on right side Condition: Good Record reviewed to determine appropriate education?: Yes Instructions: ED Stone Renal W Colic Prescriptions: Ibuprofen [Motrin] 800 mg PO Q8H PRN #30 tablet PRN Reason: PAIN &/OR FEVER HYDROcod/ACETAM 5/325 [[place] 5/325] 1 - 2 tab PO Q6H PRN #15 tablet PRN Reason: Pain Comments: [place] Drink plenty of fluids. Return for new or worsening symptoms. As discussed your CT not only showed a 3 mm right ureteral stone that is bothering you today but multiple stones in your kidneys which could become a problem some later date and an area of scarring in your left kidney. [place] next available appointment for follow-up and consideration for referral for urology consultation given multiple nephroliths. I am prescribing a short course of narcotic pain medication for you. These are potentially dangerous and addictive medications that should be used carefully. These medications may constipate you. Take an gyke-pmf-dymsezx stool softener (docusate) twice daily with plenty of water while taking these medications. If you go 24 hours without a bowel movement, take xrfi-rfo-ghirsqx miralax, per package instructions. Do not drink or drive while taking these medications. If you received narcotic or sedating medications while in the emergency department, do not drive for 24 hours. Store this medication in a safe, secure place and out of reach of children. It is a violation of federal law to give or sell this medication to another person or to use in a manner other than prescribed. The ED will not refill narcotic prescriptions, including prescriptions lost or stolen. To dispose of unwanted medications: 1. [facility] at [address] in [place] has a medication drop box. They accept prescription medications (in pill form) Friday through Friday 9:00 a.m. to 5:00 p.m. 2. [facility] accepts prescription medications (in pill form only) for disposal year round. Call for more information. 3. Contact the [facility] for the next [facility] sponsored prescription drug collection event. , [phone], or [phone]; Note that many narcotic pain relievers also contain Tylenol/acetaminophen. Please ensure that your total dose of acetaminophen from all sources does not exceed 3 g (3000 mg) per day.
--- OUTSIDE RECORDS SUMMARY | 2021-11-21 10:51 | EXTERNAL MEDICAL SUMMARY RPT | Continuity of Care Document ---
:2000 Author Organization [facility] Address [address] [phone] Phone Allergies No information. Encounters No information. Medications No information. Problems date description facility [id number] Syncope and collapse [facility] [id number] Near Syncope [facility] [id number] [place] [facility] Results No information.
[2021-11-21] MEDS ORDERED: IOVERSOL 320 100 ML VIAL IVP ONE ×2 (10:56→13:02)
[2021-11-21 10:59] LABS: BASOPHILS % (AUTO) 0.5 %; EOSINOPHILS # (AUTO) 0.1 10^3/uL (0.0-0.7); HCT - HEMATOCRIT 46.5 % (42.0-52.0); HGB - HEMOGLOBIN 15.5 g/dL (14.0-18.0); LYMPHOCYTES % (AUTO) 24.2 %; MEAN CORPUSCULAR HEMOGLOBIN 28.9 pg (27.0-31.0); MEAN CORPUSCULAR HGB CONC 33.3 g/dL (32.0-36.0); MEAN CORPUSCULAR VOLUME 86.6 fL (80.0-94.0); MEAN PLATELET VOLUME 10.4 fL (7.4-11.4); MONOCYTES # (AUTO) 0.6 10^3/uL (0.0-1.0); MONOCYTES % (AUTO) 6.6 %; NEUTROPHILS # (AUTO) 5.6 10^3/uL (1.5-6.6); NEUTROPHILS % (AUTO) 67.3 %; PLT - PLATELET COUNT 197 10^3/uL (130-450); RED BLOOD COUNT 5.37 10^6/uL (4.70-6.10); RED CELL DISTRIBUTION WIDTH 12.4 % (12.0-15.0); WHITE BLOOD COUNT 8.3 x10^3/uL (4.8-10.8)
[2021-11-21 11:20] LABS: ALBUMIN 4.2 g/dL (3.2-5.5); ALBUMIN/GLOBULIN RATIO 1.4 (1.0-2.2); BILIRUBIN,TOTAL 1.3 mg/dL (0.2-1.0); CALCIUM 9.3 mg/dL (8.5-10.3); CREATININE 1.2 mg/dL (0.6-1.2); POTASSIUM 3.9 mmol/L (3.5-5.0); TOTAL PROTEIN 7.3 g/dL (6.7-8.2)
[2021-11-21] MEDS ORDERED: KETOROLAC 15 MG/ML VIAL IVP STA (11:35)
--- NOTE | 2021-11-21 11:58 | CT Report ---
PROCEDURE: Abdomen/Pelvis W INDICATIONS: IV only, right lower quadrant pain, CONTRAST: IV CONTRAST: Optiray 320 ml: 100 PO CONTRAST: *NO PO CONTRAST TECHNIQUE: After the administration of intravenous contrast, 5 mm thick sections acquired from the diaphragms to the symphysis. 5 mm thick coronal and sagittal reformats were acquired. For radiation dose reducti on, the following was used: automated exposure control, adjustment of mA and/or kV according to nina ent size. COMPARISON: None. FINDINGS: Image quality: Excellent. ABDOMEN: Lung bases: Lung bases are clear. Heart size is normal. Solid organs: Liver and spleen are normal in size and enhancement. Gallbladder is unremarkable. Bi liary system is non dilated. Pancreas enhances normally. No adrenal nodules. A 3 mm calculus is see n in the distal right ureter adjacent to the ureterovesicular junction with mild right hydroureterone phrosis and perinephric fat stranding. The inferior pole of the right kidney is hypoenhancing, and daniels perimposed pyelonephritis or renal infarcts is not excluded. Additional punctate calculi are seen in the right kidney. Nonobstructing calculi are seen in the left kidney measuring up to 4 mm in size at the inferior pole. No left-sided hydronephrosis. Peritoneum and bowel: Mild colonic wall thickening is most likely secondary to underdistention. Judith l appendix. Small bowel loops are unremarkable. No free fluid or air. Nodes and vessels: No retroperitoneal or mesenteric adenopathy by size criteria. Aorta and inferior vena cava are normal in size. Miscellaneous: No ventral hernias. PELVIS: Genitourinary: Bladder wall thickness is normal. Miscellaneous: No inguinal hernias or adenopathy. Bones: No suspicious bony lesions. No vertebral body compression fractures. IMPRESSION: 1.Right distal ureteral 3 mm calculus at the ureterovesicular junction with mild right hydroureterone phrosis. 2.Wedge-shaped hypoenhancement of the inferior pole of the right kidney is suspicious for superimpose d pyelonephritis or renal infarct. 3.Additional bilateral nonobstructing renal calculi. Reviewed by: Antoine Abdalla MD on 11/21/2021 11:56 AM PDT Approved by: Antoine Abdalla MD on 11/21/2021 11:56 AM PDT Station ID: [id number]
[2021-11-21 12:23] LABS: BILIRUBIN,URINE NEGATIVE (NEGATIVE); GLUCOSE, URINE (UA) NEGATIVE (NEGATIVE); KETONES,URINE (UA) NEGATIVE (NEGATIVE); LEUKOCYTE ESTERASE, URINE NEGATIVE (NEGATIVE); NITRITE,URINE NEGATIVE (NEGATIVE); OCCULT BLOOD,URINE TRACE-INTA (NEGATIVE); PROTEIN,URINE NEGATIVE (NEGATIVE); UROBILINOGEN,URINE 0.2 (NORMAL) E.U./dL (NORMAL)
[2021-11-21 12:24] LABS: CLARITY,URINE CLEAR (CLEAR)
[2021-11-21 12:44] VITALS: BP 138/89
== END 2021-11-21 12:44 | disposition home or self-care (01) ==
LOC: EDUNIT# → ED 10:37
DX: N13.2 Hydronephrosis with renal and ureteral calculous obstruction (principal)
CPT/HCPCS: 36415; 74177; 80053; 81003; 83690; 85025; 96374; 96375; 99284; J1170; Q9967; 81001; 87086

== ENCOUNTER 2021-12-11 12:51 | Emergency (ER) | payer OTHER ==
[2021-12-11] MEDS ORDERED: SODIUM CHLORIDE 0.9% 1,000 ML IV STA (12:57)
--- NOTE | 2021-12-11 13:01 | ED Physician Documentation ---
History of Present Illness - Stated complaint Stated Complaint: SYNCOPE - History obtained from History obtained from: Patient, EMS - History of Present Illness Timing: Today Pain level max: 0 Pain level now: 0 - Additonal information Additional information: 21-year-old male brought in by angela FIGUEROA. He is [employer] and was reportedly watching a presentation today when he had a syncopal event. He states he remembers his heart racing, feeling nauseated and lightheaded. [place] dizzy. He states that he awoke on the floor. No injuries. No headache. No chest pain. He states that he does vape, drink water today, did not eat this morning. Has never had syncope before. No seizure activity. No tongue biting. No urinary incontinence. No postictal period. No family history of young cardiac disease. Review of Systems Ten Systems: 10 systems reviewed and negative Constitutional: denies: Fever, Chills Respiratory: denies: Cough GI: denies: Nausea, Vomiting, Diarrhea Skin: denies: Rash Musculoskeletal: denies: Neck pain, Back pain PD PAST MEDICAL HISTORY - Past Medical History Cardiovascular: None Respiratory: None Neuro: None Endocrine/Autoimmune: None GI: None : None HEENT: None Psych: Depression, Anxiety Musculoskeletal: None Derm: None - Past Surgical History Past Surgical History: Yes HEENT: Tonsil/Adenoidectomy - Present Medications Home Medications: Ambulatory Orders Medication Instructions Recorded Confirmed No Known Home Medications 12/11/21 12/11/21 - Allergies Allergies/Adverse Reactions: Allergies Allergy/AdvReac Type Severity Reaction Status Date / Time clonidine Allergy Anaphylaxis Verified 12/11/21 12:58 - Social History Does the pt smoke?: No Smoking Status: Never smoker Does the pt drink ETOH?: No Does the pt have substance abuse?: No - Immunizations Immunizations are current?: Yes PD ED PE NORMAL - Vitals Vital signs reviewed: Yes - General General: Alert and oriented X 3, No acute distress - HEENT HEENT: PERRL, Moist mucous membranes - Neck Neck: Supple, no meningeal sign - Cardiac Cardiac: RRR, Strong equal pulses - Respiratory Respiratory: No respiratory distress, Clear bilaterally - Abdomen Abdomen: Soft, Non tender, Non distended - Derm Derm: Warm and dry - Extremities Extremities: No edema - Neuro Neuro: Alert and oriented X 3 - Psych Psych: Normal mood, Normal affect Results - Vitals Vitals: Vital Signs - 24 hr 12/11/21 12/11/21 12:59 13:57 Temperature 37.4 C 37.1 C Heart Rate 108 H 83 Respiratory 18 16 Rate Blood Pressure 133/90 H 114/74 O2 Saturation 98 100 Oxygen O2 Source Room air - EKG (time done) 1327 Rate: Rate (enter#) (82) Rhythm: NSR [place]: Normal Intervals: Normal [place] QRS: Normal Ischemia: Normal ST segments - Labs Labs: Laboratory Tests 12/11/21 12/11/21 12/11/21 13:08 13:08 13:08 WBC 5.2 RBC 5.52 Hgb 15.9 Hct 47.1 MCV 85.3 MCH 28.8 MCHC 33.8 RDW 12.2 Plt Count 189 MPV 10.4 Neut # (Auto) 3.5 Lymph # (Auto) 1.1 L [place] # (Auto) 0.5 Eos # (Auto) 0.0 Baso # (Auto) 0.0 Absolute Nucleated RBC 0.00 Nucleated RBC % 0.0 D-Dimer < 200.0 L Sodium 137 Potassium 4.0 Chloride 101 Carbon Dioxide 28 Anion Gap 8.0 BUN 15 Creatinine 1.1 Estimated GFR (MDRD) 85 L Glucose 106 H Calcium 9.3 Total Bilirubin 1.7 H AST 17 ALT 16 Alkaline Phosphatase 54 Troponin I High Sens Total Protein 8.1 Albumin 4.7 Globulin 3.4 Albumin/Globulin Ratio 1.4 Lipase 31 Salicylates < 6.0 Acetaminophen < 10 L Ethyl Alcohol < 5.0 12/11/21 13:08 WBC RBC Hgb Hct MCV MCH MCHC RDW Plt Count MPV Neut # (Auto) Lymph # (Auto) [place] # (Auto) Eos # (Auto) Baso # (Auto) Absolute Nucleated RBC Nucleated RBC % D-Dimer Sodium Potassium Chloride Carbon Dioxide Anion Gap BUN Creatinine Estimated GFR (MDRD) Glucose Calcium Total Bilirubin AST ALT Alkaline Phosphatase Troponin I High Sens < 2.3 L Total Protein Albumin Globulin Albumin/Globulin Ratio Lipase Salicylates Acetaminophen Ethyl Alcohol - Rads (name of study) cxr Radiology: Final report received, EMP read contemporaneously, See rad report (no active disease) PD MEDICAL DECISION MAKING - ED course Complexity details: reviewed results, re-evaluated patient, considered differential, d/w patient ED course: Patient feels better after IV fluids. Unclear etiology of his symptoms today. Possible vasovagal from a warm room? Recommend that he follow-up with his doctor for an echocardiogram and likely Holter monitor. No arrhythmias on telemetry here. No significant lab abnormalities. Patient counseled regarding signs and symptoms for which I believe and urgent re-evaluation would be necessary. Patient with good understanding of and agreement to plan and is comfortable going home at this time This document was made in part using voice recognition software. While efforts are made to proofread this document, sound alike and grammatical errors may occur. Departure - Departure Disposition: 01 Home, Self Care Clinical Impression: Syncope Qualifiers: Syncope type: unspecified Qualified Code(s): R55 - Syncope and collapse Condition: Good Instructions: ED Fainting Unkn Cause Follow-Up: Your,doctor within 3 days [Other] Comments: The cause of your syncope today is unclear. Please follow-up with your doctor for further care. Return if you worsen. It is recommended that you have an echocardiogram and wear a Holter monitor. These can both be arranged with your doctor. Discharge Date/Time: 12/11/21 13:57
[2021-12-11 13:15] LABS: BASOPHILS % (AUTO) 0.4 %; EOSINOPHILS % (AUTO) 0.8 %; HCT - HEMATOCRIT 47.1 % (42.0-52.0); HGB - HEMOGLOBIN 15.9 g/dL (14.0-18.0); LYMPHOCYTES # (AUTO) 1.1 10^3/uL (1.5-3.5); LYMPHOCYTES % (AUTO) 21.2 %; MEAN CORPUSCULAR HEMOGLOBIN 28.8 pg (27.0-31.0); MEAN CORPUSCULAR HGB CONC 33.8 g/dL (32.0-36.0); MEAN CORPUSCULAR VOLUME 85.3 fL (80.0-94.0); MEAN PLATELET VOLUME 10.4 fL (7.4-11.4); MONOCYTES # (AUTO) 0.5 10^3/uL (0.0-1.0); MONOCYTES % (AUTO) 9.8 %; NEUTROPHILS # (AUTO) 3.5 10^3/uL (1.5-6.6); NEUTROPHILS % (AUTO) 67.6 %; PLT - PLATELET COUNT 189 10^3/uL (130-450); RED BLOOD COUNT 5.52 10^6/uL (4.70-6.10); RED CELL DISTRIBUTION WIDTH 12.2 % (12.0-15.0); WHITE BLOOD COUNT 5.2 x10^3/uL (4.8-10.8)
[2021-12-11] MEDS: SODIUM CHLORIDE 0.9% 1,000 ML IV STA (13:30)
[2021-12-11 13:31] LABS: ACETAMINOPHEN < 10 ug/mL (10-30); ALBUMIN 4.7 g/dL (3.2-5.5); ALBUMIN/GLOBULIN RATIO 1.4 (1.0-2.2); ALKALINE PHOSPHATASE 54 IU/L (42-121); ALT ALANINE AMINOTRANSFERASE 16 IU/L (10-60); AST ASPARTATE AMINOTRANSFERASE 17 IU/L (10-42); BILIRUBIN,TOTAL 1.7 mg/dL (0.2-1.0); BUN - BLOOD UREA NITROGEN 15 mg/dL (6-20); CALCIUM 9.3 mg/dL (8.5-10.3); CARBON DIOXIDE - CO2 28 mmol/L (21-32); CHLORIDE 101 mmol/L (101-111); CREATININE 1.1 mg/dL (0.6-1.2); ETOH - ETHANOL < 5.0 mg/dL; GFR - MDRD 85 (>89); GLUCOSE 106 mg/dL (70-100); LIPASE 31 U/L (22-51); SALICYLATE < 6.0 mg/dL; SODIUM 137 mmol/L (135-145); TOTAL PROTEIN 8.1 g/dL (6.7-8.2)
--- NOTE | 2021-12-11 13:41 | XRAY Report ---
PROCEDURE: Chest 1 View X-Ray INDICATIONS: Chest Pain TECHNIQUE: One view of the chest was acquired. COMPARISON: None. FINDINGS: SUPPORT DEVICES: None. LUNGS/PLEURA: No focal consolidation, pleural effusion or space-occupying pneumothorax. MEDIASTINUM: The cardiomediastinal silhouette is within normal limits. BONES/SOFT TISSUES: No acute abnormality. IMPRESSION: 1.No acute cardiopulmonary abnormality. Reviewed by: Rich Pace MD on 12/11/2021 1:40 PM PDT Approved by: Rich Pace MD on 12/11/2021 1:40 PM PDT Station ID: [id number]
[2021-12-11 13:57] VITALS: BP 114/74
== END 2021-12-11 13:57 | disposition home or self-care (01) ==
LOC: ED 12:51
DX: R55 Syncope and collapse (principal)
CPT/HCPCS: 36415; 80053; 80307; 80320; 80329; 83690; 84484; 85025; 85379; 93005; 99283; 99284